=== PATIENT | female | born 1975 | race Caucasian/White ===

== ENCOUNTER 2017-10-17 15:43 | Emergency (ER) | payer MEDICAID ==
[~2017-10-17] VITALS: Ht 167.6 cm; Wt 160.6 kg
[~2017-10-17 15:43] MED LIST: ASPIR 8181 MG PO; KEFLEX500 MG PO; LAC PO; LEVAQUIN500 MG PO; LOVASTATIN10 MG PO; PROZ20 PO; VENTOLIN H0.09 MG/A1 INH; ZES10 PO; ZESTRIL10 MG PO
[2017-10-17 15:51] VITALS: Ht 167.6 cm; Wt 160.6 kg
[2017-10-17 22:19] VITALS: BP 160/92
== END 2017-10-17 22:19 | disposition home or self-care (01) ==
LOC: ED 15:43
DX: S02.81XA Fracture of other specified skull and facial bones, right side, initial encounter for closed fracture (principal); J45.909 Unspecified asthma, uncomplicated; S09.90XA Unspecified injury of head, initial encounter; X58.XXXA Exposure to other specified factors, initial encounter; Y93.89 Activity, other specified; Y92.89 Other specified places as the place of occurrence of the external cause; Y99.8 Other external cause status
CPT/HCPCS: 82962; 90715; J1885

== ENCOUNTER 2018-08-26 14:22 | Emergency (ER) | payer MEDICAID ==
[~2018-08-26] VITALS: Ht 167.6 cm; Wt 171.0 kg
[2018-08-26 14:28] VITALS: Ht 167.6 cm; Wt 171.0 kg
[2018-08-26 15:32] LABS: CALCIUM 8.8 mg/dL (8.5-10.1); CHLORIDE SERUM 101 mmol/L (98-107); CREATININE SERUM 0.7 mg/dL (0.6-1.0); GFR1 > 60 mL/min; GLUCOSE SERUM 95 mg/dL (74-106); PLATELET COUNT 327 x10^3mcL (130-400); POTASSIUM SERUM 3.7 mmol/L (3.5-5.1); RED CELL DISTRIBUTION WIDTH 15.6 % (11.5-14.5); SODIUM SERUM 138 mmol/L (136-145)
[2018-08-26 15:38] LABS: ALKALINE PHOSPHATASE 90 U/L (46-116); ALT/SGPT 25 U/L (14-59); AST/SGOT 14 U/L (15-37); BILIRUBIN TOTAL 0.8 mg/dL (0.20-1.00); TOTAL PROTEIN, SERUM 7.4 g/dL (6.4-8.2)
[2018-08-26 15:39] LABS: ALBUMIN 3.1 g/dL (3.4-5.0)
[2018-08-26 18:20] LABS: AMPHETAMINE QUAL UR POSITIVE (See below)
[2018-08-26 19:45] VITALS: BP 161/124
== END 2018-08-26 19:45 | disposition home or self-care (01) ==
LOC: ED 14:22
PROVIDERS: Emergency Medicine
DX: R07.89 Other chest pain (principal); F17.210 Nicotine dependence, cigarettes, uncomplicated; F15.10 Other stimulant abuse, uncomplicated; D64.9 Anemia, unspecified; E66.01 Morbid (severe) obesity due to excess calories; J45.909 Unspecified asthma, uncomplicated; I10 Essential (primary) hypertension; E11.9 Type 2 diabetes mellitus without complications; Z68.44 Body mass index [BMI] 60.0-69.9, adult
CPT/HCPCS: 36415; 82962; 85378; 99406

== ENCOUNTER 2019-07-12 22:53 | Emergency (ER) | payer MEDICAID ==
[~2019-07-12] VITALS: Ht 167.6 cm; Wt 170.6 kg
[2019-07-12 22:58] VITALS: BP 179/109; Ht 167.6 cm; Wt 170.6 kg
== END 2019-07-13 00:34 | disposition home or self-care (01) ==
LOC: ED 22:53
DX: J40 Bronchitis, not specified as acute or chronic (principal); F17.210 Nicotine dependence, cigarettes, uncomplicated; J45.909 Unspecified asthma, uncomplicated; I10 Essential (primary) hypertension; E11.9 Type 2 diabetes mellitus without complications
CPT/HCPCS: 99406; Q0092